=== PATIENT | female | born 1970 | race Caucasian/White ===

== ENCOUNTER 2018-03-05 07:07 | Day surgery (SDC) | payer BC ==
[~2018-03-05 07:07] MED LIST: CEFAZOLIN 2 GM/50 ML (PMX) 50 ML IVPB
[2018-03-05] MEDS: SOD CHLORIDE 0.9% 1,000 ML IV (07:45)
[2018-03-05 07:58] LABS: ADD MAN DIFF? NO
[2018-03-05 08:00] LABS: WHITE BLOOD COUNT 6.4 10^3/ul (4.8-10.8)
[2018-03-05 08:00] LABS: BASOPHILS % 0.6 % (0.0-2.0); EOSINOPHILS % 0.6 % (0.0-7.0); HEMATOCRIT 33.6 % (37.0-47.0); HEMOGLOBIN 11.3 g/dl (12.0-16.0); LYMPHOCYTES # 1.3 10^3/ul (0.8-2.9); LYMPHOCYTES % 20.8 % (15.0-51.0); MEAN CORPUSCULAR HEMOGLOBIN 30.5 pg (29.0-33.0); MEAN CORPUSCULAR HGB CONC 33.6 g/dl (32.0-37.0); MEAN CORPUSCULAR VOLUME 90.6 fl (82.0-101.0); MEAN PLATELET VOLUME 10.4 fl (7.4-10.4); MONOCYTE # 0.4 10^3/ul (0.3-0.9); MONOCYTES % 6.8 % (0.0-11.0); NEUTROPHIL # 4.5 10^3/ul (1.6-7.5); NEUTROPHILS % 70.9 % (39.0-77.0); PLATELET COUNT 231 10^3/UL (140-415); RED BLOOD COUNT 3.71 10^6/ul (4.20-5.40); RED CELL DISTRIBUTION WIDTH 12.8 % (11.5-14.5)
[2018-03-05 08:21] LABS: PT RATIO 0.9
[2018-03-05 08:29] LABS: ALANINE AMINOTRANSFERASE 50 IU/L (13-69); ALBUMIN 3.6 g/dl (3.3-4.9); ALKALINE PHOSPHATASE 72 IU/L (42-121); ANION GAP 13 (8-16); ASPARTATE AMINO TRANSFERASE 38 IU/L (15-46); BILIRUBIN,INDIRECT 0.5 mg/dl (0-1.1); BILIRUBIN,TOTAL 0.5 mg/dl (0.2-1.3); BLOOD UREA NITROGEN 13 mg/dl (7-20); CALCIUM 8.8 mg/dl (8.4-10.2); CARBON DIOXIDE 26 mmol/L (21-31); CHLORIDE 107 mmol/L (97-110); CREATININE 0.59 mg/dl (0.44-1.00); GLUCOSE 89 mg/dl (70-220); POTASSIUM 3.7 mmol/L (3.5-5.1); SODIUM 142 mmol/L (135-144); TOTAL PROTEIN 6.6 g/dl (6.1-8.1)
[2018-03-05 08:41] LABS: INR 0.85; PARTIAL THROMBOPLASTIN TIME 25.4 Sec (25.0-35.0); PROTIME 11.7 Sec (11.9-14.9)
[2018-03-05] MEDS ORDERED: LIDOCAINE 2% (SDV) 5 ML INJ (09:42)
[2018-03-05] MEDS ORDERED: CEFAZOLIN 1 GM INJ (09:42)
[2018-03-05] MEDS ORDERED: MEPERIDINE /PF (100 MG/2 ML) AMPULE (09:42)
[2018-03-05] MEDS ORDERED: PROPOFOL 20 ML (09:42)
[2018-03-05] MEDS ORDERED: METOCLOPRAMIDE 10 MG INJ (09:43)
[2018-03-05] MEDS ORDERED: ONDANSETRON 4 MG INJ (09:43)
[2018-03-05] MEDS: BUPIVACAINE 0.25% (MPF) 30 ML INJ (09:46)
[2018-03-05] MEDS ORDERED: IBUPROFEN 800 MG TAB PO (10:30)
[2018-03-05] MEDS ORDERED: LABETALOL HCL 20MG INJ IV (11:00)
[2018-03-05] MEDS ORDERED: HYDROmorphONE 1 MG/5 ML IV SYRINGE IV ×3 (11:00)
[2018-03-05] MEDS ORDERED: METOCLOPRAMIDE 10 MG INJ IV (11:00)
[2018-03-05] MEDS ORDERED: OXYCODONE/ACETAMINOPHEN (5/325) TAB PO ×2 (11:00)
[2018-03-05] MEDS ORDERED: MIDAZOLAM 1 MG/ML 2 ML INJ IV (11:00)
[2018-03-05] MEDS ORDERED: DIPHENHYDRAMINE 50 MG INJ IV (11:00)
[2018-03-05] MEDS ORDERED: ONDANSETRON 4 MG INJ IV (11:00)
[2018-03-05] MEDS ORDERED: MEPERIDINE 25 MG INJ IV (11:00)
[2018-03-05] MEDS ORDERED: FENTAnyl 50 MCG/ML VIAL IV ×3 (11:00)
[2018-03-05] MEDS ORDERED: hydrALAzine 20 MG INJ IV (11:00)
[2018-03-05] MEDS ORDERED: EPHEDrine SULFATE 50 MG/5 ML SYG IV (11:00)
== END 2018-03-05 12:23 | disposition home or self-care (01) ==
LOC: SDS 07:07
DX: L90.5 Scar conditions and fibrosis of skin (principal)
CPT/HCPCS: 14000; 80053; 84703; 85025; 85610; 85730; 88307